=== PATIENT | male | born 1990 | race Caucasian/White ===

== ENCOUNTER 2018-04-05 09:12 | Emergency (ER) | payer BC, OTHER ==
--- OUTSIDE RECORDS SUMMARY | 2018-04-05 09:43 | XMS REPORT ---
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 Family History Date Family Member(s) Problem(s) Comments Father Hypercholesterolemia Mother Heart Disease Mother Asthma Mother Hypertension First Sister Asthma First Sister Mental Illness First Sister Depression First Sister Migraine Headache Grandfather Cancer, Liver Grandfather Diabetes, Adult Grandmother Cancer, Breast Uncle Cancer Aunt Cancer, Breast Aunt Mental Illness Aunt Anemia Aunt Depression Social History Type Date Description Comments Education Highest level completed, Associates Degree Marital Status Single Occupation Student at 3, studying [employer] Occupation Currently Working at [employer] on [address] occasionally for [employer] in [place] [employer] Cigarette Use Light tobacco smoker (10 or Socially 1-2 cigarettes/month fewer cigarettes/day) ETOH Use consumes 2-3 beers per day Recreational Drug Use Regularly uses Marijuana Daily use Daily Caffeine Consumes on average 1 cup of coffee per day Allergies, Adverse Reactions, Alerts Date Description Reaction Status Severity Comments 09/10/2015 Amoxicillin active 09/10/2015 Wet Leaves active Medications Medication Date Status Form Strength Qnty SIG Indications Ordering Provider Omeprazole 05/26/ Active Capsules 40mg 90caps [address], every day DO L-Arginine / Active Tablets 1 PO qd Unknown 0000 Hycosamine / Active Unknown 0000 Melatonin / Active Tablets 10mg 1 by Unknown 0000 Sub mouth every night at bedtime as needed Naproxen 09/10/ Hx Tablets 500mg 60tabs take 1 M54.5 Eduardo, 2018 - tablet Sid 10/10/ twice a DO 2017 day with food Cyclobenzaprine 09/10/ Hx Tablets 10mg 30tabs take 1 M54.5 Eduardo, HCL 2017 - tablet by Sid 10/10/ mouth DO 2017 every night at bedtime as needed muscle spasm Naproxen Sodium 06/18/ Hx Tablets 550mg 30tabs take 1 Eduardo, 2016 - tablet by Sid 09/10/ mouth DO 2017 every 12 hours for 2 weeks, then as needed Omeprazole 05/25/ Hx Capsules 20mg 90caps 1 by Mercy Clark - DR rajwinder Lau, 05/26/ every day DO 2015 Omeprazole 0000/ Hx Capsules ? 1 by Unknown 0000 - DR purdy 05/25/ every day 2015 Immunizations CPT Code Status Date Vaccine Lot # [id number] Given 07/31/2014 Flu Vaccine NOS 80804 Given 04/03/2013 HPV Vaccine (Gardasil) 3 Dose Schedule 57516 Given 10/11/2012 HPV Vaccine (Gardasil) 3 Dose Schedule 74132 Given 07/25/2012 HPV Vaccine (Gardasil) 3 Dose Schedule 21959 Given 07/25/2012 Hepatitis A Vaccine, Adult Dosage 26894 Given 11/07/2008 Menactra/Menveo Meningococcal Vaccine 97982 Given 11/07/2008 Tdap (Adacel) Ages 7 And Above Only U-Td Given 05/22/2003 Td(Adult) (Non Billable) Unspecified 81272 Given 12/02/2000 Hepatitis B Vac Ped/Adolescent 3 Dose Schedule 16872 Given 05/31/2000 Hepatitis B Vac Ped/Adolescent 3 Dose Schedule 66273 Given 02/27/2000 Hepatitis B Vac Ped/Adolescent 3 Dose Schedule 36520 Given 03/20/1996 MMR Virus Immunization U-DTaP Given 03/20/1996 DTaP (Non Billable) Unspecified [id number] U-Polio Given 03/20/1996 Polio (Non Billable) Unspecified U-Polio Given 10/15/1992 Polio (Non Billable) Unspecified U-DTaP Given 10/15/1992 DTaP (Non Billable) Unspecified [id number] U-HIB Given 05/27/1992 Hib (Non Billable) Unspecified 10974 Given 05/27/1992 MMR Virus Immunization U-HIB Given 1991 Hib (Non Billable) Unspecified 01946 Given 1991 DTP Immunization U-Polio Given 1991 Polio (Non Billable) Unspecified U-HIB Given 1991 Hib (Non Billable) Unspecified 60565 Given 1991 DTP Immunization U-Polio Given 1991 Polio (Non Billable) Unspecified U-HIB Given 1991 Hib (Non Billable) Unspecified 36058 Given 1991 DTP Immunization Vital Signs Date Vital Result Comment 03/15/2018 Body Temperature 98.8 F tympanic Weight 169.50 lb Heart Rate 78 /min BP Systolic 126 mmHg BP Diastolic 78 mmHg Respiratory Rate 16 /min Height 72 inches 6'0" BMI (Body Mass Index) 23.0 kg/m2 09/10/2017 Weight 168.00 lb Heart Rate 96 /min BP Systolic 128 mmHg BP Diastolic 84 mmHg Respiratory Rate 17 /min Height 72 inches 6'0" BMI (Body Mass Index) 22.8 kg/m2 06/18/2017 Weight 166.00 lb Heart Rate 82 /min BP Systolic 134 mmHg BP Diastolic 80 mmHg Respiratory Rate 17 /min Height 72 inches 6'0" (09/2015) BMI (Body Mass Index) 22.5 kg/m2 05/14/2017 Weight 169.00 lb Heart Rate 72 /min BP Systolic 132 mmHg BP Diastolic 94 mmHg Respiratory Rate 17 /min Height 72 inches 6'0" (09/2015) BMI (Body Mass Index) 22.9 kg/m2 03/23/2016 Weight 186.00 lb Heart Rate 78 /min BP Systolic 128 mmHg BP Diastolic 78 mmHg Respiratory Rate 18 /min Height 72 inches 6'0" (09/2015) BMI (Body Mass Index) 25.2 kg/m2 09/10/2015 Weight 199.00 lb Heart Rate 96 /min BP Systolic 122 mmHg BP Diastolic 80 mmHg Respiratory Rate 18 /min Height 72 inches 6'0" (09/2015) BMI (Body Mass Index) 27.0 kg/m2 Results Test Date Test Result H/L Range Note Basic (BMP) 07/23/2017 Sodium 143 mmol/L 135-146 1 Potassium 4.8 mmol/L 3.5-5.2 Chloride# 103 mmol/L 97-110 2 Carbon Dioxide 36 mmol/L High 24-34 Glucose 83 mg/dL 70-105 Creatinine 0.9 mg/dL 0.5-1.4 Calcium 9.7 mg/dL 8.5-10.2 Non Bre Egfr >60 >60 3 Bre Egfr >60 >60 4 Anion Gap 4 mmol/L Low 7-16 5 BUN 13 mg/dL 6-26 Laboratory test finding 07/23/2017 Carboxyhemoglobin 2.4 % High (0.0-1.5) 6 Laboratory test finding 05/21/2017 Carboxyhemoglobin 6.0 % High (0.0-1.5) 7 CBC With Auto Diff 05/14/2017 WBC 8.6 K/uL 4.1-11.0 RBC 4.66 M/uL 4.60-6.10 Hemoglobin 14.8 gm/dL 13.5-18.0 Hematocrit 43.2 % 41.0-53.0 MCV 92.8 fL 80.0-97.0 MCH 31.7 pg 27.0-32.0 MCHC 34.2 g/dL 32.0-36.0 RDW 13.0 % 11.5-14.5 PLT Count 317 K/ul 140-400 MPV 7.5 FL 7.1-10.7 Neutrophil 54.2 % 35.0-75.0 Lymphocyte 37.5 % 16.0-52.0 Monocyte 6.9 % 2.0-10.0 Eosinophil 0.9 % 0.0-5.0 Basophil 0.5 % 0.0-4.0 Abs Neutrophils 4.6 K/uL 2.1-8.0 Abs Lymphocytes 3.2 K/uL 0.8-5.5 Abs Monocytes 0.6 K/uL 0.1-1.0 Abs Eosinophils 0.1 K/uL 0.0-0.5 Abs Basophils 0.0 K/uL 0.0-0.3 Comprehensive Met Panel-FCMG 05/14/2017 Sodium 141 mmol/L 135-146 8 Potassium 4.6 mmol/L 3.5-5.2 Chloride# 101 mmol/L 97-110 9 Carbon Dioxide 35 mmol/L High 24-34 Glucose 88 mg/dL 70-105 Creatinine 1.0 mg/dL 0.5-1.4 Calcium 10.1 mg/dL 8.5-10.2 Total Protein 6.9 g/dL 6.0-8.0 Albumin 4.8 g/dL 3.6-4.9 Globulin 2.1 g/dL 2.0-3.5 A/G Ratio 2.3 Ratio High 1.0-2.2 Total Bilirubin 0.3 mg/dL 0.1-1.3 Alkaline Phosphatase 53 U/L 24-140 Alt 13 U/L 3-42 Ast 14 U/L 8-42 Bre Egfr >60 >60 10 Non Bre Egfr >60 >60 11 Anion Gap 5 mmol/L Low 7-16 12 BUN 14 mg/dL 6-26 Laboratory test finding 05/14/2017 TSH 2.80 uIU/mL 0.35-4.94 Hemoglobin A1c 05/14/2017 Hemoglobin A1c 5.6 % 4.1-5.9 Estimated Average Glucose Calc 114 71-140 Laboratory test 05/14/2017 CRP (C-Reactive) 0.04 mg/dL 0.00-0.75 finding Laboratory test 09/10/2015 Urine Culture Microbiology res <SEE 13 finding NOTE> 1 Updated reference range on new analyzer 2 Updated reference range on new analyzer 3 Concerning GFR Guidelines: Normal function or mild renal disease, if clinically at risk: >/=60 mL/min Moderately decreased: 30-59 Severely decreased: 15-29 Renal failure: <15 Glomerular Filtration Rate (GFR) is estimated based on the MDRD equation, which assumes a steady state for creatinine as recommended by the National Kidney Disease Education Program in conjunction with the National Institutes of Health and the National Kidney Foundation. Clinical conditions in which it may be necessary to measure GFR by using clearance methods include extremes of age and body size, severe malnutrition or obesity, diseases of skeletal muscle, paraplegia or quadriplegia, vegetarian diet, rapidly changing kidney function, and calculation of the dose of potentially toxic drugs that are excreted by the kidneys. 4 Concerning GFR Guidelines for Americans: Normal function or mild renal disease, if clinically at risk: >/=60 mL/min Moderately decreased: 30-59 Severely decreased: 15-29 Renal failure: <15 5 Updated reference range on new analyzer 6 REFERENCE RANGE: SMOKER UP TO 5% HEAVY SMOKER UP TO 9% PERFORMED AT [address] [place] [address] Unless otherwise specified, testing [place] [address] 7 REFERENCE RANGE: SMOKER UP TO 5% HEAVY SMOKER UP TO 9% PERFORMED AT [address] [place] [address] Unless otherwise specified, testing performed by [facility] [place] [address] 8 Updated reference range on new analyzer 9 Updated reference range on new analyzer 10 Concerning GFR Guidelines for Americans: Normal function or mild renal disease, if clinically at risk: >/=60 mL/min Moderately decreased: 30-59 Severely decreased: 15-29 Renal failure: <15 11 Concerning GFR Guidelines: Normal function or mild renal disease, if clinically at risk: >/=60 mL/min Moderately decreased: 30-59 Severely decreased: 15-29 Renal failure: <15 Glomerular Filtration Rate (GFR) is estimated based on the MDRD equation, which assumes a steady state for creatinine as recommended by the National Kidney Disease Education Program in conjunction with the National Institutes of Health and the National Kidney Foundation. Clinical conditions in which it may be necessary to measure GFR by using clearance methods include extremes of age and body size, severe malnutrition or obesity, diseases of skeletal muscle, paraplegia or quadriplegia, vegetarian diet, rapidly changing kidney function, and calculation of the dose of potentially toxic drugs that are excreted by the kidneys. 12 Updated reference range on new analyzer 13 Microbiology results SOURCE URINE FINAL RESULT No growth Procedures Date CPT Code Description Status 05/21/2017 78742 X-Ray Chest Two Views Frontal & Lateral Completed 09/10/2015 07101 Screening Hearing Test Completed Encounters Type Date Location Provider CPT E/M Dx Office Visit 09/10/2017 8:30a [facility] [place] [address] M54.5 Office Visit 06/18/2017 11:15a [facility] [place] [address] R63.4 K58.9 E88.40 T58.11xA K04.7 Office Visit 05/14/2017 3:00p [facility] [place] [address] R63.4 R63.2 K58.9 E88.40 Office Visit 03/23/2016 3:00p [facility] [place] [address] E88.40 K21.9 K58.9 J30.9 R21 R13.19 Office Visit 09/10/2015 10:00a [facility] [place] [address] Z00.00 R10.32 E88.40 R31.2 K21.9 K58.9 J18.9 Plan of Care Future Appointment(s):04/01/2018 1:00 pm - Sid Clark DO at [facility]03/15/2018 - Marisela Clemens, NPN50.811 RIGHT testicular painNew Xrays:Ultrasound TesticularComments:Will check US and notify of result.Follow up:PRN for increased or persistent pain Please schedule US ASAPM54.5 Low back painComments: Recommend ibuprofen 600-800mg every 6-8 hours with food.Rest, ice or moist heat may be helpful.If USnegative and back pain worsens or doesn't improve will consider CT
--- OUTSIDE RECORDS SUMMARY | 2018-04-05 09:43 | XMS REPORT ---
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 Payers Type Date Identification Numbers Payment Provider Subscriber Commercial Effective: Policy Number: [id number] [facility] Preston Jensen 2017 PayID: [id number] [address] [place] [address] Problems Date Description Provider Status Onset: 09/10/2015 [...] Status Single Occupation Student at 3, studying [employer] Occupation Currently Working at [employer] on [employer] occasionally for [employer] in [place] [employer] Cigarette Use Light tobacco smoker (10 or [...] Lau, 05/26/ every day DO 2015 Omeprazole 00/00/ Hx Capsules ? 1 by Unknown 0000 - DR purdy 05/25/ every day 2015 Medications Administered in Office Medication Date Status Form Strength Qnty SIG Indications Ordering Provider PPD Administered Injection Renetta Clark DO Immunizations CPT Code Status Date Vaccine Lot # [id number] Given 04/01/2018 Hepatitis A Vaccine, Adult Dosage [id number] Given 07/31/2014 Flu Vaccine NOS 49951 Given 04/03/2013 HPV Vaccine (Gardasil) 3 Dose Schedule 34988 Given 10/11/2012 HPV Vaccine (Gardasil) 3 Dose Schedule 30288 Given 07/25/2012 HPV Vaccine (Gardasil) 3 Dose Schedule 58985 Given 07/25/2012 Hepatitis A Vaccine, Adult Dosage 84046 Given 11/07/2008 Menactra/Menveo Meningococcal Vaccine 25914 Given 11/07/2008 Tdap (Adacel) Ages 7 And Above Only U-Td Given 05/22/2003 Td(Adult) (Non Billable) Unspecified 10472 Given 12/02/2000 Hepatitis B Vac Ped/Adolescent 3 Dose Schedule 69663 Given 05/31/2000 Hepatitis B Vac Ped/Adolescent 3 Dose Schedule 72769 Given 02/27/2000 Hepatitis B Vac Ped/Adolescent 3 Dose Schedule 15235 Given 03/20/1996 MMR Virus Immunization U-DTaP Given 03/20/1996 DTaP (Non Billable) Unspecified [id number] U-Polio Given 03/20/1996 Polio (Non Billable) Unspecified U-Polio Given 10/15/1992 Polio (Non Billable) Unspecified U-DTaP Given 10/15/1992 DTaP (Non Billable) Unspecified [id number] U-HIB Given 05/27/1992 Hib (Non Billable) Unspecified 22653 Given 05/27/1992 MMR Virus Immunization U-HIB Given 1991 Hib (Non Billable) Unspecified 75788 Given 1991 DTP Immunization U-Polio Given 1991 Polio (Non Billable) Unspecified U-HIB Given 1991 Hib (Non Billable) Unspecified 55722 Given 1991 DTP Immunization U-Polio Given 1991 Polio (Non Billable) Unspecified U-HIB Given 1991 Hib (Non Billable) Unspecified 13049 Given 1991 DTP Immunization Vital Signs Date Vital Result Comment 04/01/2018 Body Temperature 98.1 F Weight 172.00 lb Heart Rate 82 /min BP Systolic 108 mmHg BP Diastolic 76 mmHg Respiratory Rate 17 /min Height 72 inches 6'0" BMI (Body Mass Index) 23.3 kg/m2 03/15/2018 Body Temperature 98.8 F tympanic Weight [...] Abs Basophils 0.0 K/uL 0.0-0.3 Comprehensive Met Panel-FCM 05/14/2017 Sodium 141 mmol/L 135-146 8 Potassium [...] SMOKER UP TO 9% PERFORMED AT [address] [email or web address] [address] Unless otherwise specified, testing performed by [employer] [address] [place] [address] 7 REFERENCE RANGE: SMOKER UP TO 5% HEAVY SMOKER UP TO 9% PERFORMED AT [address] [email or web address] [address] Unless otherwise specified, testing performed by [facility] [facility] [address] [place] [address] 8 Updated reference range on new analyzer [...] Procedures Date CPT Code Description Status 05/21/2017 39540 X-Ray Chest Two Views Frontal & Lateral Completed 09/10/2015 92260 Screening Hearing Test Completed Encounters Type Date Location Provider CPT E/M Dx Office Visit 04/01/2018 1:00p [facility] [place] [address] Z00.00 K58.9 K21.9 E88.40 Z23 Office Visit 03/15/2018 10:45a [facility] [place] [address] N50.811 M54.5 Office Visit 09/10/2017 8:30a [facility] [place] [address] M54.5 Office Visit 06/18/2017 11:15a [facility] [place] [address] R63.4 K58.9 E88.40 T58.11xA K04.7 Office Visit 05/14/2017 3:00p [facility] [place] [address] R63.4 R63.2 K58.9 E88.40 Office Visit 03/23/2016 3:00p [facility] [place] [address] E88.40 K21.9 K58.9 J30.9 R21 R13.19 Office Visit 09/10/2015 10:00a [facility] [place] [address] Z00.00 R10.32 E88.40 R31.2 K21.9 K58.9 J18.9 Plan of Care Future Appointment(s):04/04/2018 11:30 am - Schedule, Nurses at [facility]04/05/2019 2 :00 pm - Sid Clark DO at [facility]04/01/2018 - iSd Clark DOZ00.00 Encntr for general adult medical exam w/o abnormal findingsFollow up:Follow up in 1 year for an annual physical or sooner if you have any problems. Schedule nurse visit at 11:30 on Wednesday for PPD read.K58.9 Irritable bowel syndrome without igzorddpO19.9 Gastro-esophageal reflux disease without gdcfjwqnxomB65.40 Mitochondrial metabolism disorder, [id number] Encounter for immunization
[2018-04-05 09:53] VITALS: BP 142/70
--- NOTE | 2018-04-05 10:48 | UC ---
[facility] HPI - HPI Summary HPI Summary: dental pain x 2 days left lower back molar , pain is 8 out of 10 , no radiation worse with chewing, better with Tylenol no fever, no chills - History of Current Complaint Chief Complaint: UCDentalProblem Stated Complaint: TOOTH ACHE Time Seen by Provider: 04/05/18 10:36 Hx Obtained From: Patient Onset/Duration: Gradual Onset, Lasting Days - 2, Still Present Severity: Severe Pain Intensity: 8 Aggravating Factor(s): Cold, Chewing - Allergies/Home Medications Allergies/Adverse Reactions: Allergies Allergy/AdvReac Type Severity Reaction Status Date / Time amoxicillin Allergy Hives Verified 04/05/18 09:53 MS Amoxicillin [Amoxicillin] Allergy Hives Verified 04/05/18 09:53 Home Medications: Home Medications Acetaminophen [Acetaminophen Extra Strength] 1,000 mg PO BID PRN 04/05/18 [ History Confirmed 04/05/18] PMH/Surg Hx/FS Hx/Imm Hx - Additional Past Medical History Additional PMH: GERD, IBS, epilepsy- last seizure 2013; L-Arginine tx for metabolic disorder GI/ History: Gastroesophageal Reflux - Surgical History Surgical History: Yes Surgery Procedure, Year, and Place: Left leg MUSCLE BIOPSY 2009. TONSILS - Family History Known Family History: Positive: None Negative: Diabetes - Social History Alcohol Use: Occasionally Alcohol Amount: 2 BEERS Substance Use Type: None Smoking Status (MU): Current Some Day Smoker Review of Systems Constitutional: Negative Skin: Negative Eyes: Negative ENT: Dental Pain Respiratory: Negative Cardiovascular: Negative Is Patient Immunocompromised?: No All Other Systems Reviewed And Are Negative: Yes Physical Exam Triage Information Reviewed: Yes Appearance: Well-Appearing, No Pain Distress, Well-Nourished Vital Signs: Initial Vital Signs Temp 98.5 F 04/05/18 09:46 Pulse 64 04/05/18 09:46 Resp 18 04/05/18 09:46 BP 142/70 04/05/18 09:46 Pulse Ox 100 04/05/18 09:46 Vital Signs Reviewed: Yes Eye Exam: Normal Eyes: Positive: Conjunctiva Clear ENT: Positive: Normal ENT inspection, Hearing grossly normal, Pharynx normal Dental: Positive: Percussion Tenderness @ - #18. Negative: Gross Decay/Caries @ , Dental Fracture @, Abscess @, Cellulitis @ Neck exam: Normal Neck: Positive: Supple, Nontender Respiratory: Positive: Chest non-tender, Lungs clear, Normal breath sounds Cardiovascular: Positive: RRR, No Murmur, Pulses Normal Dental Complaint Course/Dx - Differential Dx/Diagnosis Provider Diagnoses: dental pain Discharge - Sign-Out/Discharge Documenting (check all that apply): Patient Departure All imaging exams completed and their final reports reviewed: No Studies - Discharge Plan Condition: Stable Disposition: HOME Prescriptions: Clindamycin HCl 300 mg PO Q6H #28 capsule HYDROcodone/ACETAMIN 5-325 MG* [Bostic 5-325 TAB*] 1 tab PO Q6H PRN #10 tab MDD 4 PRN Reason: Pain Patient Education Materials: Toothache (ED) Referrals: Sid Clark DO [Primary Care Provider] - - Billing Disposition and Condition Condition: STABLE Disposition: Home
== END 2018-04-05 10:49 | disposition home or self-care (01) ==
LOC: UCCORT 09:12
DX: K08.89 Other specified disorders of teeth and supporting structures (principal); Z88.0 Allergy status to penicillin; F17.200 Nicotine dependence, unspecified, uncomplicated
CPT/HCPCS: 99212; G0463